=== PATIENT | female | born 1945 | race Two or more races ===

== ENCOUNTER 2018-02-27 09:32 | Outpatient (CLI) | payer OTHER | END 2018-02-27 09:43 | disposition home or self-care (01) | LOC: MAMO-SONO 09:32 | DX: Z12.31 Encounter for screening mammogram for malignant neoplasm of breast (principal); Z87.898 Personal history of other specified conditions; N61.0 Mastitis without abscess ==

== ENCOUNTER 2019-03-06 08:19 | Outpatient (CLI) | payer OTHER | END 2019-03-06 08:28 | disposition home or self-care (01) | LOC: MAMO-SONO 08:19 | DX: Z12.31 Encounter for screening mammogram for malignant neoplasm of breast (principal); Z87.898 Personal history of other specified conditions; N60.11 Diffuse cystic mastopathy of right breast; N60.12 Diffuse cystic mastopathy of left breast ==

== ENCOUNTER 2020-04-08 13:04 | Outpatient (CLI) | payer OTHER | END 2020-04-08 13:13 | disposition home or self-care (01) | LOC: MAMO-SONO 13:04 | PROVIDERS: ATTEND General Practice | DX: Z12.31 Encounter for screening mammogram for malignant neoplasm of breast (principal) ==